=== PATIENT | female | born 1955 | race African-American/Black ===

== ENCOUNTER 2019-11-27 00:09 | Inpatient (IN) | payer OTHER ==
[~2019-11-27] VITALS: Ht 175.3 cm; Wt 78.0 kg
[2019-11-27] MEDS ORDERED: ONDANSETRON HCL 4MG/2ML INJ IV STA ×2 (00:29→03:37)
[2019-11-27] MEDS ORDERED: SODIUM CHLORIDE 0.9% 1,000 ML IV ONE (00:29)
[2019-11-27] MEDS ORDERED: KETOROLAC 30MG/ML VIAL IV STA (00:29)
[2019-11-27 00:56] LABS: BASOPHILS % 0.3 % (0.0-2.0); EOSINOPHILS % 0.2 % (0.0-5.0); HEMATOCRIT. 56.3 % (36.0-48.0); HEMOGLOBIN. 18.6 g/dL (12.0-16.0); LYMPHOCYTES % 12.3 % (20.0-50.0); MEAN CORPUSCULAR HEMOGLOBIN 27.3 pg (28.0-32.0); MEAN CORPUSCULAR VOLUME 82.7 fL (81.0-99.0); MONOCYTES % 2.7 % (2.0-8.0); NEUTROPHILS % 84.5 % (40.0-76.0); RED CELL DISTRIBUTION WIDTH 16.3 % (11.6-14.6)
[2019-11-27 01:03] LABS: CHLORIDE 99 mEq/L (98-107)
[2019-11-27 01:06] LABS: INR 1.2; PROTHROMBIN TIME 12.1 sec (9.6-11.0)
[2019-11-27 01:31] LABS: MEAN PLATELET VOLUME 9.5 fl (7.4-10.4); PLATELET 431 x1000/uL (130-400)
[2019-11-27] MEDS ORDERED: MORPHINE SULFATE 4 MG/ML CPJ (NOT FOR IM USE) IV STA (03:37)
[2019-11-27 09:04] LABS: CLARITY URINE TURBID (CLEAR); COLOR URINE DK YELLOW (YELLOW); KETONES URINE NEGATIVE (NEGATIVE); LEUKOCYTE ESTERASE URINE 2+ (NEGATIVE); NITRITE URINE NEGATIVE (NEGATIVE); OCCULT BLOOD URINE 1+ (NEGATIVE); PROTEIN URINE 2+ (NEGATIVE); SPECIFIC GRAVITY URINE 1.022 (1.005-1.030)
[2019-11-27 09:30] VITALS: BP 133/71
[2019-11-27] MEDS ORDERED: DEXTROSE 50% WATER 50ML SYRINGE IV PRN (10:00)
[2019-11-27] MEDS ORDERED: HYDROMORPHONE HCL/PF 2MG/ML CPJ IV PRN (10:00)
[2019-11-27] MEDS: ONDANSETRON HCL 4MG/2ML INJ IV PRN ×3 (10:42→18:07)
[2019-11-27] MEDS: DEXT 5%/0.45% NACL 1000ML 1,000 ML IV SCH ×2 (10:42→20:00)
[2019-11-27] MEDS: INSULIN LISPRO 100 UNITS/ML SUBCUT SCH ×3 (11:59→21:21)
[2019-11-27] MEDS: BLOOD SUGAR DIAGNOSTIC STRIP TEST SCH ×3 (11:59→21:21)
[2019-11-27 12:00] VITALS: BP 126/84
[2019-11-27 12:07] LABS: BASOPHILS % 0.5 % (0.0-2.0); EOSINOPHILS % 0.1 % (0.0-5.0); HEMATOCRIT. 51.9 % (36.0-48.0); HEMOGLOBIN. 17.3 g/dL (12.0-16.0); MEAN CORPUSCULAR HEMOGLOBIN 27.3 pg (28.0-32.0); MEAN CORPUSCULAR VOLUME 82.3 fL (81.0-99.0); MEAN PLATELET VOLUME 9.6 fl (7.4-10.4); MONOCYTES % 6.7 % (2.0-8.0); NEUTROPHILS % 79.7 % (40.0-76.0); PLATELET 355 x1000/uL (130-400); RED BLOOD CELL COUNT 6.31 mill/uL (4.2-5.4); RED CELL DISTRIBUTION WIDTH 16.2 % (11.6-14.6)
[2019-11-27 12:18] LABS: CHLORIDE 102 mEq/L (98-107)
[2019-11-27 12:25] LABS: HDL CHOLESTEROL 48 mg/dL (40-59); LDL CHOLESTEROL 117 mg/dL (5-100)
[2019-11-27 12:27] LABS: T4 FREE 1.29 ng/dL (0.76-1.46)
[2019-11-27] MEDS: PIPERACILLIN/TAZOBACTAM 2.25 G in DEXTROSE 5% WATER 50 ML IV SCH ×2 (13:00→21:07)
[2019-11-27] MEDS ORDERED: INSULIN REGULAR (HUMULIN R) UD 100 UNITS/ML SYR IV NR (14:00)
[2019-11-27] MEDS ORDERED: CALCIUM GLUCONATE 1,000 MG in DEXT 5% WATER 90 ML IV SCH (14:00)
[2019-11-27] MEDS ORDERED: DEXTROSE 50% WATER 50ML SYRINGE IV NR (14:00)
[2019-11-27] MEDS: NICOTINE 14MG PATCH TD SCH (14:48)
[2019-11-27 16:00] VITALS: BP 125/65
[2019-11-27 16:30] VITALS: BP 114/72
[2019-11-27 16:34] LABS: CHLORIDE 102 mEq/L (98-107)
[2019-11-27 16:46] LABS: CREATINE KINASE 886 IU/L (26-192)
[2019-11-27 16:48] LABS: CREATINE KINASE MB FRACTION 11.7 ng/mL (0.5-3.6)
[2019-11-27] MEDS: HYDROMORPHONE HCL/PF 2MG/ML CPJ IV PRN (18:08)
[2019-11-27 19:06] LABS: HEMATOCRIT 47.3 % (36.0-48.0); HEMOGLOBIN 15.9 g/dL (12.0-16.0)
[2019-11-27 20:00] VITALS: BP 117/48
[2019-11-27] MEDS: HEPARIN 5000 UNITS/ML VIAL SUBCUT SCH (21:06)
[2019-11-28] VITALS (7 sets, daily range): BP systolic 92–144; BP diastolic 55–83
[2019-11-28 00:53] LABS: HEMATOCRIT 46.8 % (36.0-48.0); HEMOGLOBIN 15.8 g/dL (12.0-16.0)
[2019-11-28] MEDS: HYDROMORPHONE HCL/PF 2MG/ML CPJ IV PRN ×4 (01:03→23:27)
[2019-11-28] MEDS: PIPERACILLIN/TAZOBACTAM 2.25 G in DEXTROSE 5% WATER 50 ML IV SCH ×3 (04:13→20:58)
[2019-11-28 04:34] LABS: *AMPHETAMINES SCREEN URINE PRESUMTIVE POSITIVE (NEGATIVE); *BARBITURATES SCREEN URINE NEGATIVE (NEGATIVE); *BENZODIAZEPINES SCREEN URINE NEGATIVE (NEGATIVE); *COCAINE SCREEN URINE NEGATIVE (NEGATIVE)
[2019-11-28 04:35] LABS: CANNABINOID URINE SCREEN PRESUMTIVE POSITIVE (NEGATIVE); METHADONE URINE SCREEN NEGATIVE (NEGATIVE); OPIATES URINE SCREEN PRESUMTIVE POSITIVE (NEGATIVE); PHENCYCLIDINE URINE SCREEN NEGATIVE (NEGATIVE)
[2019-11-28] MEDS: DEXT 5%/0.45% NACL 1000ML 1,000 ML IV SCH ×2 (06:00→17:01)
[2019-11-28] MEDS: BLOOD SUGAR DIAGNOSTIC STRIP TEST SCH ×4 (06:34→20:58)
[2019-11-28] MEDS: INSULIN LISPRO 100 UNITS/ML SUBCUT SCH ×4 (06:44→21:00)
[2019-11-28 07:04] LABS: HEMATOCRIT. 46.5 % (36.0-48.0); HEMOGLOBIN. 15.6 g/dL (12.0-16.0); MEAN CORPUSCULAR HEMOGLOBIN 27.5 pg (28.0-32.0); MEAN CORPUSCULAR VOLUME 81.9 fL (81.0-99.0); MEAN PLATELET VOLUME 9.6 fl (7.4-10.4); PLATELET 314 x1000/uL (130-400); RED BLOOD CELL COUNT 5.68 mill/uL (4.2-5.4); RED CELL DISTRIBUTION WIDTH 15.9 % (11.6-14.6)
[2019-11-28 07:25] LABS: CHLORIDE 100 mEq/L (98-107)
[2019-11-28 07:45] LABS: CREATINE KINASE 474 IU/L (26-192)
[2019-11-28] MEDS: HEPARIN 5000 UNITS/ML VIAL SUBCUT SCH (09:36)
[2019-11-28] MEDS: NICOTINE 14MG PATCH TD SCH (09:37)
[2019-11-28 13:37] LABS: PLATELET ESTIMATE NORMAL
[2019-11-28] MEDS ORDERED: DIATR MEGLU/DIATRIZOATE SOLN 120ML ONE (15:15)
[2019-11-29] VITALS: BP 106/61
[2019-11-29] MEDS: DEXT 5%/0.45% NACL 1000ML 1,000 ML IV SCH ×3 (02:48→22:14)
[2019-11-29 04:00] VITALS: BP 115/49
[2019-11-29] MEDS: PIPERACILLIN/TAZOBACTAM 2.25 G in DEXTROSE 5% WATER 50 ML IV SCH ×3 (04:45→20:27)
[2019-11-29] MEDS: INSULIN LISPRO 100 UNITS/ML SUBCUT SCH ×4 (06:03→21:00)
[2019-11-29] MEDS: BLOOD SUGAR DIAGNOSTIC STRIP TEST SCH ×4 (06:03→21:42)
[2019-11-29 08:00] VITALS: BP 115/65
[2019-11-29] MEDS: NICOTINE 14MG PATCH TD SCH (08:29)
[2019-11-29] MEDS: HYDROMORPHONE HCL/PF 2MG/ML CPJ IV PRN ×2 (08:31→20:27)
[2019-11-29 12:00] VITALS: BP_SYST 104; BP_SYST 144; BP_DIAS 39; BP_DIAS 50
[2019-11-29 16:00] VITALS: BP 127/54
[2019-11-29 20:00] VITALS: BP 111/31
[2019-11-29] MEDS: ONDANSETRON HCL 4MG/2ML INJ IV PRN (21:42)
[2019-11-30] VITALS: BP 94/44
[2019-11-30 04:00] VITALS: BP 93/61
[2019-11-30] MEDS: PIPERACILLIN/TAZOBACTAM 2.25 G in DEXTROSE 5% WATER 50 ML IV SCH ×3 (04:19→21:56)
[2019-11-30] MEDS: HYDROMORPHONE HCL/PF 2MG/ML CPJ IV PRN ×4 (06:39→22:29)
[2019-11-30 06:47] LABS: BASOPHILS % 0.4 % (0.0-2.0); EOSINOPHILS % 0.5 % (0.0-5.0); LYMPHOCYTES % 8.1 % (20.0-50.0); MEAN CORPUSCULAR HEMOGLOBIN 27.4 pg (28.0-32.0); MEAN CORPUSCULAR VOLUME 82.2 fL (81.0-99.0); MEAN PLATELET VOLUME 9.9 fl (7.4-10.4); MONOCYTES % 6.6 % (2.0-8.0); NEUTROPHILS % 84.4 % (40.0-76.0); PLATELET 263 x1000/uL (130-400); RED BLOOD CELL COUNT 5.11 mill/uL (4.2-5.4); RED CELL DISTRIBUTION WIDTH 15.8 % (11.6-14.6)
[2019-11-30] MEDS: BLOOD SUGAR DIAGNOSTIC STRIP TEST SCH ×4 (06:55→21:00)
[2019-11-30] MEDS: INSULIN LISPRO 100 UNITS/ML SUBCUT SCH ×4 (06:55→22:26)
[2019-11-30 07:16] LABS: CHLORIDE 99 mEq/L (98-107)
[2019-11-30 08:00] VITALS: BP 116/51
[2019-11-30] MEDS: NICOTINE 14MG PATCH TD SCH (10:08)
[2019-11-30] MEDS: DEXT 5%/0.45% NACL 1000ML 1,000 ML IV SCH ×2 (10:08→18:53)
[2019-11-30 12:00] VITALS: BP 131/62
[2019-11-30] MEDS ORDERED: POTASSIUM CHLORIDE 20MEQ TABLET SR PO NR (13:00)
[2019-11-30 16:00] VITALS: BP 126/76
[2019-11-30] MEDS: SIMETHICONE 80MG TABLET CHEW PO SCH ×2 (16:49→21:56)
[2019-11-30 20:00] VITALS: BP 142/60
[2019-12-01] VITALS: BP 119/69
[2019-12-01] MEDS: HYDROMORPHONE HCL/PF 2MG/ML CPJ IV PRN ×5 (03:45→20:07)
[2019-12-01] MEDS: ONDANSETRON HCL 4MG/2ML INJ IV PRN (03:57)
[2019-12-01] MEDS: PIPERACILLIN/TAZOBACTAM 2.25 G in DEXTROSE 5% WATER 50 ML IV SCH ×3 (03:57→20:07)
[2019-12-01] MEDS: DEXT 5%/0.45% NACL 1000ML 1,000 ML IV SCH ×2 (03:58→14:26)
[2019-12-01 04:00] VITALS: BP 140/66
[2019-12-01] MEDS: BLOOD SUGAR DIAGNOSTIC STRIP TEST SCH ×4 (07:03→20:46)
[2019-12-01] MEDS: SIMETHICONE 80MG TABLET CHEW PO SCH ×4 (07:03→20:07)
[2019-12-01] MEDS: INSULIN LISPRO 100 UNITS/ML SUBCUT SCH ×4 (07:03→20:47)
[2019-12-01 07:14] LABS: HEMATOCRIT. 41.6 % (36.0-48.0); MEAN CORPUSCULAR HEMOGLOBIN 27.7 pg (28.0-32.0); MEAN CORPUSCULAR VOLUME 82.6 fL (81.0-99.0); MEAN PLATELET VOLUME 9.6 fl (7.4-10.4); PLATELET 289 x1000/uL (130-400); RED BLOOD CELL COUNT 5.04 mill/uL (4.2-5.4); RED CELL DISTRIBUTION WIDTH 15.7 % (11.6-14.6)
[2019-12-01 07:47] LABS: PHOSPHORUS 3.8 mg/dL (2.5-4.9)
[2019-12-01 08:00] VITALS: BP 131/66
[2019-12-01] MEDS: NICOTINE 14MG PATCH TD SCH (08:23)
[2019-12-01 12:00] VITALS: BP 112/68
[2019-12-01 16:00] VITALS: BP 133/72
[2019-12-01] MEDS ORDERED: DEXT IV ONE (17:00)
[2019-12-01] MEDS ORDERED: POTASSIUM ACETATE IV ONE (17:00)
[2019-12-01] MEDS ORDERED: NACL IV ONE (17:00)
[2019-12-01 18:50] LABS: PLATELET ESTIMATE NORMAL
[2019-12-01 20:00] VITALS: BP 122/74
[2019-12-02] VITALS: BP 108/73
[2019-12-02] MEDS: HYDROMORPHONE HCL/PF 2MG/ML CPJ IV PRN ×6 (00:34→22:54)
[2019-12-02 04:00] VITALS: BP 133/62
[2019-12-02] MEDS: PIPERACILLIN/TAZOBACTAM 2.25 G in DEXTROSE 5% WATER 50 ML IV SCH ×3 (04:50→20:42)
[2019-12-02] MEDS: BLOOD SUGAR DIAGNOSTIC STRIP TEST SCH ×4 (06:25→20:39)
[2019-12-02] MEDS: INSULIN LISPRO 100 UNITS/ML SUBCUT SCH ×4 (06:25→20:38)
[2019-12-02] MEDS: SIMETHICONE 80MG TABLET CHEW PO SCH ×4 (06:39→20:42)
[2019-12-02 07:20] LABS: BASOPHILS % 0.2 % (0.0-2.0); HEMATOCRIT. 43.3 % (36.0-48.0); HEMOGLOBIN. 14.3 g/dL (12.0-16.0); LYMPHOCYTES % 7.9 % (20.0-50.0); MEAN CORPUSCULAR HEMOGLOBIN 27.3 pg (28.0-32.0); MEAN CORPUSCULAR VOLUME 82.9 fL (81.0-99.0); MEAN PLATELET VOLUME 9.4 fl (7.4-10.4); MONOCYTES % 10.6 % (2.0-8.0); NEUTROPHILS % 80.3 % (40.0-76.0); PLATELET 320 x1000/uL (130-400); RED BLOOD CELL COUNT 5.22 mill/uL (4.2-5.4); RED CELL DISTRIBUTION WIDTH 15.5 % (11.6-14.6)
[2019-12-02 08:00] VITALS: BP 168/106
[2019-12-02] MEDS: NICOTINE 14MG PATCH TD SCH (08:51)
[2019-12-02] MEDS ORDERED: HYDRALAZINE 20MG/ML VIAL IV PRN (09:15)
[2019-12-02] MEDS ORDERED: DEXT 5%/0.45% NACL 500ML 1,000 ML IV ONE (10:00)
[2019-12-02] MEDS: DEXT 5%/0.45% NACL 1000ML 1,000 ML IV SCH (11:32)
[2019-12-02 12:00] VITALS: BP 144/81
[2019-12-02 16:00] VITALS: BP 140/72
[2019-12-02] MEDS: ONDANSETRON HCL 4MG/2ML INJ IV PRN (18:28)
[2019-12-02 20:00] VITALS: BP 147/72
[2019-12-03] VITALS: BP 122/74
[2019-12-03] MEDS: HYDROMORPHONE HCL/PF 2MG/ML CPJ IV PRN ×2 (03:22→08:00)
[2019-12-03] MEDS: DEXT 5%/0.45% NACL 1000ML 1,000 ML IV SCH (03:28)
[2019-12-03 04:02] VITALS: BP 140/85
[2019-12-03] MEDS: BLOOD SUGAR DIAGNOSTIC STRIP TEST SCH (05:43)
[2019-12-03] MEDS: SIMETHICONE 80MG TABLET CHEW PO SCH (05:46)
[2019-12-03] MEDS: INSULIN LISPRO 100 UNITS/ML SUBCUT SCH (06:17)
[2019-12-03 07:50] LABS: BASOPHILS % 0.4 % (0.0-2.0); EOSINOPHILS % 1.6 % (0.0-5.0); HEMOGLOBIN. 14.7 g/dL (12.0-16.0); LYMPHOCYTES % 11.7 % (20.0-50.0); MEAN CORPUSCULAR HEMOGLOBIN 27.7 pg (28.0-32.0); MEAN PLATELET VOLUME 8.9 fl (7.4-10.4); MONOCYTES % 12.2 % (2.0-8.0); NEUTROPHILS % 74.1 % (40.0-76.0); PLATELET 310 x1000/uL (130-400); RED CELL DISTRIBUTION WIDTH 15.5 % (11.6-14.6)
[2019-12-03] MEDS: NICOTINE 14MG PATCH TD SCH (07:59)
[2019-12-03 08:00] VITALS: BP 170/86
== END 2019-12-03 10:00 | disposition left against medical advice (07) | DRG 871 ==
LOC: ER 00:09 → 6EST 04:51 → ENRESERV 07:29 → 5WST 16:23
PROVIDERS: ADMIT Internal Medicine; ATTEND Internal Medicine
DX: A41.9 Sepsis, unspecified organism (principal); I50.33 Acute on chronic diastolic (congestive) heart failure; K56.1 Intussusception; N39.0 Urinary tract infection, site not specified; K62.5 Hemorrhage of anus and rectum; M62.82 Rhabdomyolysis; I13.0 Hypertensive heart and chronic kidney disease with heart failure and stage 1 through stage 4 chronic kidney disease, or unspecified chronic kidney disease; N17.9 Acute kidney failure, unspecified; K56.7 Ileus, unspecified; K57.90 Diverticulosis of intestine, part unspecified, without perforation or abscess without bleeding; E78.00 Pure hypercholesterolemia, unspecified; E78.5 Hyperlipidemia, unspecified; E87.5 Hyperkalemia; K63.5 Polyp of colon; N18.3 Chronic kidney disease, stage 3 (moderate); R73.9 Hyperglycemia, unspecified; F17.200 Nicotine dependence, unspecified, uncomplicated; F15.10 Other stimulant abuse, uncomplicated; Z53.29 Procedure and treatment not carried out because of patient's decision for other reasons; Z87.19 Personal history of other diseases of the digestive system; K52.9 Noninfective gastroenteritis and colitis, unspecified
CPT/HCPCS: 36415; 71045; 74018; 74021; 74176; 74250; 80048; 80053; 80061; 80305; 81003; 82550; 82553; 82962; 83036; 83605; 84100; 84439; 84443; 84484; 85014; 85018; 85025; 86850; 86900; 93005; 93306; 99285; J0360; J0610; J1170; J1644; J1815; J1885; J2270; J2405; J2543; J3490; J7030; J7060; Q9963